=== PATIENT | female | born 1950 | race Caucasian/White ===

== ENCOUNTER 2018-11-26 09:14 | Emergency (ER) | payer MEDICARE, OTHER ==
--- NOTE | 2018-11-26 09:49 | ER Document Report ---
ED Medical Screen (RME) - General Chief Complaint: Dizziness Stated Complaint: DIZZINESS/ALTERED MENTAL STATUS Time Seen by Provider: 11/26/18 09:47 - HPI Notes: 11/26/18 09:47 Patient is a 68-year-old female with a history of ADD and anxiety/depression who presents with complaining of pain behind her eyes, dizziness, intermittent double vision, chest pain on exertion, shortness of breath on exertion that began at 8am this morning. Denies fever, neck pain, URI, Abd pain, dysuria, back pain, or rash. I have treated and performed a rapid initial assessment of this patient. A comprehensive ED assessment and evaluation of the patient, analysis of test results and completion of medical decision making process will be conducted by additional ED providers. PHYSICAL EXAMINATION: GENERAL: Well-appearing, well-nourished and in no acute distress. A&Ox4. Answers questions appropriately. Eyes: PERRLA, EOMI b/l. no nystagmus. Extremities: No cyanosis, clubbing, or edema b/l. NEUROLOGICAL: Normal speech, normal gait. NIH 0. GCS 15. Cranial nerves grossly intact. PSYCH: flat affect - Related Data Allergies/Adverse Reactions: No Known Allergies Allergy (Unverified 11/26/18 09:44) Past Medical History - Social History Chew tobacco use (# tins/day): No Physical Exam - Vital signs Vitals: Temp Pulse Resp BP 97.7 F 68 15 129/79 H 11/26/18 09:44 11/26/18 09:44 11/26/18 09:44 11/26/18 09:44 Course - Vital Signs Vital signs: Temp Pulse Resp BP Pulse Ox 97.7 F 68 15 129/79 H 11/26/18 09:44 11/26/18 09:44 11/26/18 09:44 11/26/18 09:44
[2018-11-26] MEDS ORDERED: NORMAL SALINE 1000 ML 1,000 ML IV ONE (09:50)
[2018-11-26] MEDS ORDERED: MECLIZINE HCL 25 MG TABLET PO ONE (09:50)
[2018-11-26 10:04] LABS: ABSOLUTE BASOPHILS # (AUTO) 0.1 10^3/uL (0.0-0.2); ABSOLUTE EOSINOPHILS # (AUTO) 0.2 10^3/uL (0.0-0.6); ABSOLUTE LYMPHOCYTES (AUTO) 1.6 10^3/uL (0.5-4.7); ABSOLUTE MONOCYTES (AUTO) 0.4 10^3/uL (0.1-1.4); ABSOLUTE NEUT (AUTO) 3.6 10^3/uL (1.7-8.2); EOSINOPHILS % (AUTO) 3.1 % (0-6); HEMATOCRIT 38.1 % (36.0-47.0); MEAN CORPUSCULAR HEMOGLOBIN 30.6 pg (27.0-33.4); MEAN CORPUSCULAR VOLUME 90 fl (80-97); MONOCYTES % (AUTO) 6.7 % (3-13); PLATELET COUNT 216 10^3/uL (150-450); RED BLOOD COUNT 4.24 10^6/uL (3.72-5.28); RED CELL DISTRIBUTION WIDTH 13.4 % (11.5-14.0); SEGMENTED NEUTROPHILS % (AUTO) 62.2 % (42-78); TOTAL CELLS COUNTED % (AUTO) 100 %; WHITE BLOOD COUNT 5.9 10^3/uL (4.0-10.5)
[2018-11-26 10:27] LABS: ALBUMIN 4.5 g/dL (3.5-5.0); ALKALINE PHOSPHATASE 72 U/L (38-126); ANION GAP 7 (5-19); ASPARTATE AMINO TRANSFERASE 19 U/L (14-36); BILIRUBIN,TOTAL 0.4 mg/dL (0.2-1.3); BLOOD UREA NITROGEN 18 mg/dL (7-20); CALCIUM 9.3 mg/dL (8.4-10.2); CARBON DIOXIDE 28 mmol/L (22-30); CHLORIDE 103 mmol/L (98-107); GLUCOSE 136 mg/dL (75-110); POTASSIUM 4.7 mmol/L (3.6-5.0); TOTAL PROTEIN 7.8 g/dL (6.3-8.2)
[2018-11-26 10:29] LABS: INTERNATIONAL RATION (INR) 0.98; PROTHROMBIN TIME 12.9 SEC (11.4-15.4)
[2018-11-26 10:36] LABS: NT PRO BNP 23 pg/mL (5-900)
[2018-11-26 10:37] LABS: TROPONIN I < 0.012 ng/mL
--- NOTE | 2018-11-26 11:10 | RADIOLOGY REPORT (SQ) ---
EXAM DESCRIPTION: CHEST SINGLE VIEW COMPLETED DATE/TIME: 11/26/2018 10:17 am REASON FOR STUDY: dizziness COMPARISON: None. EXAM PARAMETERS: NUMBER OF VIEWS: One view. TECHNIQUE: Single frontal radiographic view of the chest acquired. RADIATION DOSE: NA LIMITATIONS: None. FINDINGS: LUNGS AND PLEURA: No opacities, masses or pneumothorax. No pleural effusion. MEDIASTINUM AND HILAR STRUCTURES: No masses. Contour normal. HEART AND VASCULAR STRUCTURES: Heart normal in size. Normal vasculature. BONES: No acute findings. HARDWARE: None in the chest. OTHER: No other significant finding. IMPRESSION: NO ACUTE RADIOGRAPHIC FINDING IN THE CHEST. TECHNICAL DOCUMENTATION: JOB ID: [id number] [employer]- All Rights Reserved Reading location - IP/workstation name: [email or web address]
--- NOTE | 2018-11-26 11:13 | RADIOLOGY REPORT (SQ) ---
EXAM DESCRIPTION: CT HEAD WITHOUT COMPLETED DATE/TIME: 11/26/2018 10:38 am REASON FOR STUDY: dizziness, SIMS COMPARISON: None. TECHNIQUE: Axial images acquired through the brain without intravenous contrast. Images reviewed wi th bone, brain and subdural windows. Additional sagittal and coronal reconstructions were generated. Images stored on PACS. All CT scanners at this facility use dose modulation, iterative reconstruction, and/or weight based d osing when appropriate to reduce radiation dose to as low as reasonably achievable (ALARA). [facility]: Dose Right [facility]: CareDose [facility]: Dose Right [facility]: Teradose 4D [facility]: [employer] RADIATION DOSE: CT Rad equipment meets quality standard of care and radiation dose reduction techniq ues were employed. CTDIvol: 53.2 mGy. DLP: 991 mGy-cm. mGy. LIMITATIONS: None. FINDINGS: VENTRICLES: Normal size and contour. CEREBRUM: No masses. No hemorrhage. No midline shift. No evidence for acute infarction. Normal gra y/white matter differentiation. No areas of low density in the white matter. CEREBELLUM: No masses. No hemorrhage. No alteration of density. No evidence for acute infarction. EXTRAAXIAL SPACES: No fluid collections. No masses. ORBITS AND GLOBE: No intra- or extraconal masses. Normal contour of globe without masses. CALVARIUM: No fracture. PARANASAL SINUSES: No fluid or mucosal thickening. SOFT TISSUES: No mass or hematoma. OTHER: No other significant finding. IMPRESSION: NORMAL BRAIN CT WITHOUT CONTRAST. EVIDENCE OF ACUTE STROKE: NO. COMMENT: Quality ID # [id number]: Final reports with documentation of one or more dose reduction techniques (e.g., Automated exposure control, adjustment of the mA and/or kV according to patient size, use of iterative reconstruction technique) TECHNICAL DOCUMENTATION: JOB ID: [id number] [employer]- All Rights Reserved Reading location - IP/workstation name: [email or web address]
--- NOTE | 2018-11-26 12:05 | EKG REPORT ---
SEVERITY:- NORMAL ECG - SINUS RHYTHM : Confirmed by: Alondra Walsh MD 26-Nov-2018 12:04:56
[2018-11-26 12:54] LABS: APPEARANCE,URINE CLEAR; BILIRUBIN,URINE NEGATIVE (NEGATIVE); COLOR,URINE STRAW; GLUCOSE, URINE NEGATIVE (NEGATIVE); KETONES,URINE NEGATIVE (NEGATIVE); LEUKOCYTE ESTERASE,URINE NEGATIVE (NEGATIVE); NITRITE,URINE NEGATIVE (NEGATIVE); PROTEIN,URINE NEGATIVE (NEGATIVE); URINE SPECIFIC GRAVITY 1.008; UROBILINOGEN,URINE NEGATIVE mg/dL (<2.0)
--- NOTE | 2018-11-26 14:32 | ER Document Report ---
ED General - General Chief Complaint: Dizziness Stated Complaint: DIZZINESS/ALTERED MENTAL STATUS Time Seen by Provider: 11/26/18 09:47 - HPI Notes: Patient is a 68-year-old female who presents the emergency department for evaluation. She states that she is feeling weak. Yesterday she was outside in the heat, working. She states today she was walking and had a near syncopal episode. She states she had pain behind her eyes for the last several days. She states she believes it was allergies. She took some [id number] allergy medication and this is improved. She states she feels dizzy and lightheaded. She denies any vertiginous symptoms. No hearing loss, no tinnitus. No difficulty speaking or swallowing. She has been taking her medications as prescribed. At this point she states she feels weak, but denies any other acute complaints or concerns. She states that she does get some dyspnea with exertion. She denies any chest pain. She states to me she just feels fatigued all the time. Her speaks up and states he hears her snoring heavily in the night, believes she has sleep apnea. - Related Data Allergies/Adverse Reactions: No Known Allergies Allergy (Unverified 11/26/18 09:44) Past Medical History - General Information source: Patient - Social History Smoking Status: Unknown if Ever Smoked Chew tobacco use (# tins/day): No Family History: Reviewed & Not Pertinent Patient has suicidal ideation: No Patient has homicidal ideation: No GI Medical History: Reports: Hx Gastroesophageal Reflux Disease Psychiatric Medical History: Reports: Hx Attention Deficit Hyperactivity Disorder Review of Systems - Review of Systems Constitutional: See HPI EENT: No symptoms reported Cardiovascular: See HPI Respiratory: No symptoms reported Gastrointestinal: No symptoms reported Genitourinary: No symptoms reported Musculoskeletal: No symptoms reported Skin: No symptoms reported Neurological/Psychological: No symptoms reported Physical Exam - Vital signs Vitals: Temp Pulse Resp BP 97.7 F 68 15 129/79 H 11/26/18 09:44 11/26/18 09:44 11/26/18 09:44 11/26/18 09:44 - Notes Notes: Vital signs reviewed, please refer to chart. Head is normocephalic, atraumatic. Pupils equal round, reactive to light. Neck is supple without meningismus. Heart is regular rate and rhythm. Lungs are clear to auscultation bilaterally. Abdomen is soft, nontender, normoactive bowel sounds throughout. Extremities wi thout cyanosis, clubbing. Posterior calves are nontender. Peripheral pulses are equal. Skin is warm and dry. Patient is awake, alert, neurological exam is nonfocal. Patient is awake, alert, oriented x3. Cranial nerves II - XII are grossly intact without focal neurological deficits. Strength is plus 5 out of 5 bilateral upper and lower extremities. Sensation is intact. Reflexes symmetrical. Intact [id number], rapid alternating movements, [id number]. Course - Re-evaluation Re-evalutation: 11/26/18 14:34 Patient presents emergency department for evaluation. She is had dyspnea on exertion. She had a near syncopal episode. Laboratory investigations were obtained and found to be unremarkable. EKG failed to reveal any acute changes. Patient is feeling somewhat improved here after rest. Her neurological exam is unremarkable. At this point we will then discharge her home. The importance of close follow-up was stressed to the patient. I also encouraged her to follow-up regarding possible evaluation for sleep apnea. She voiced understanding. Otherwise this patient has had a negative stress test in the past. She is not regularly hypertensive. She sees a doctor regularly. She is follow-up with primary care, return to the ED with worsening or new concerning symptoms of any sort. - Vital Signs Vital signs: Temp Pulse Resp BP Pulse Ox 98.1 F 79 16 136/71 H 97 11/26/18 14:01 11/26/18 14:25 11/26/18 14:25 11/26/18 14:25 11/26/18 14:01 - Laboratory Result Diagrams: 11/26/18 09:53 11/26/18 09:53 Laboratory results interpreted by me: 11/26/18 09:53 Glucose 136 H Discharge - Discharge Clinical Impression: Near syncope, Dyspnea on exertion Disposition: HOME, SELF-CARE Instructions: Dizziness ([facility]), Near Syncopal Episode ([facility]) Additional Instructions: Rest, stay well-hydrated. Follow-up with your primary care provider this week. You may need further testing, including but not limited to repeat stress test or heart catheterization. You should also discussed the possibility of sleep apnea with your primary care doctor. Return to the emergency department with worsening or new concerning symptoms of any sort. Forms: Return to Work
[2018-11-26 14:49] VITALS: BP 136/71
== END 2018-11-26 14:47 | disposition home or self-care (01) ==
LOC: ER 09:14
DX: R55 Syncope and collapse (principal); R06.00 Dyspnea, unspecified; R53.1 Weakness; R42 Dizziness and giddiness
CPT/HCPCS: 93005; 36415; 85025; 85610; 80053; 81001; 84484; 83880; 71045; 70450; 93010; A9270; J7030